=== PATIENT | female | born 1990 | race Caucasian/White ===

== ENCOUNTER → 2018-03-22 | Outpatient (CLI) | payer BC ==
[~2018-03-22] MED LIST: ASPI-515 PO; MAGN84TA6 PO; UBID60CA2 PO; VITA1TAB19 PO
== END | disposition home or self-care (01) ==
LOC: CARD 12:45
PROVIDERS: ATTEND Psychiatry & Neurology Neurology
DX: G40.909 Epilepsy, unspecified, not intractable, without status epilepticus (principal)
CPT/HCPCS: 95819

== ENCOUNTER → 2018-04-05 | Outpatient (CLI) | payer BC | END | disposition home or self-care (01) | LOC: RAD 14:15 | PROVIDERS: ATTEND Nurse Practitioner Family | DX: R13.14 Dysphagia, pharyngoesophageal phase (principal) | CPT/HCPCS: 74220 ==

== ENCOUNTER 2018-04-12 12:15 | Emergency (ER) | payer BC ==
[~2018-04-12] VITALS: Ht 170.2 cm; Wt 71.2 kg
[2018-04-12 12:58] LABS: MICROSCOPIC NOT IND
[2018-04-12 13:09] LABS: CULTURE INDICATED? NO
[2018-04-12 14:14] LABS: BASOPHILS # (AUTO) 0.03 x10^3/uL (0-0.1); BASOPHILS % (AUTO) 0 % (0-1); EOSINOPHILS # (AUTO) 0.12 x10^3/uL (0-0.4); EOSINOPHILS % (AUTO) 2 % (1-7); LYMPHOCYTES # (AUTO) 2.82 x10^3/uL (1-3.4); LYMPHOCYTES % (AUTO) 49 % (22-44); MD NO; MEAN CORPUSCULAR HEMOGLOBIN 31.3 pg (27.0-34.8); MEAN CORPUSCULAR VOLUME 92.1 fL (80-100); MEAN PLATELET VOLUME 9.1 fL (7.4-10.4); MONOCYTES # (AUTO) 0.48 x10^3/uL (0.2-0.8); MONOCYTES % (AUTO) 8 % (2-9); NEUTROPHILS # (AUTO) 2.37 x10^3/uL (1.8-6.8); NEUTROPHILS % (AUTO) 41 % (42-75); PLATELET COUNT 286 x10^3/uL (130-400); RED BLOOD COUNT 4.67 x10^6/uL (3.82-5.3); RED CELL DISTRIBUTION WIDTH 12.7 % (9.6-15.2)
[2018-04-12 14:28] LABS: ALBUMIN 4.1 g/dL (3.4-5.0); ANION GAP 5 mmol/L (5-15); CALCIUM 8.7 mg/dL (8.5-10.1); CHLORIDE 105 mmol/L (98-107)
[2018-04-12 14:34] LABS: ALANINE AMINOTRANSFERASE 25 U/L (12-78); ALKALINE PHOSPHATASE 53 U/L (45-117); BILIRUBIN,TOTAL 0.6 mg/dL (0.2-1.0); CREATININE 0.81 mg/dL (0.55-1.02); TOTAL PROTEIN 7.3 g/dL (6.4-8.2)
[2018-04-12 15:55] VITALS: BP 110/79
[2018-04-12] MEDS ORDERED: OMNIPAQUE 350 MG/ML, 100ML BOTTLE ONE (16:41)
== END 2018-04-12 17:18 | disposition home or self-care (01) ==
LOC: ED 14:50
DX: R10.32 Left lower quadrant pain (principal); R39.15 Urgency of urination; Z98.51 Tubal ligation status
CPT/HCPCS: 36415; 74018; 74177; 76830; 80053; 81003; 84703; 85025; 99285; Q9967

== ENCOUNTER 2018-04-27 09:46 | Emergency (ER) | payer BC ==
[~2018-04-27] VITALS: Ht 170.2 cm; Wt 72.2 kg
[2018-04-27 09:48] VITALS: BP 114/72
[2018-04-27 10:34] LABS: BASOPHILS # (AUTO) 0.03 x10^3/uL (0-0.1); BASOPHILS % (AUTO) 1 % (0-1); EOSINOPHILS # (AUTO) 0.12 x10^3/uL (0-0.4); EOSINOPHILS % (AUTO) 2 % (1-7); LYMPHOCYTES # (AUTO) 2.75 x10^3/uL (1-3.4); LYMPHOCYTES % (AUTO) 42 % (22-44); MD NO; MEAN CORPUSCULAR HEMOGLOBIN 31.5 pg (27.0-34.8); MEAN CORPUSCULAR VOLUME 92.6 fL (80-100); MEAN PLATELET VOLUME 8.8 fL (7.4-10.4); MONOCYTES # (AUTO) 0.53 x10^3/uL (0.2-0.8); MONOCYTES % (AUTO) 8 % (2-9); NEUTROPHILS # (AUTO) 3.09 x10^3/uL (1.8-6.8); NEUTROPHILS % (AUTO) 47 % (42-75); PLATELET COUNT 259 x10^3/uL (130-400); RED BLOOD COUNT 4.82 x10^6/uL (3.82-5.3); RED CELL DISTRIBUTION WIDTH 13.2 % (9.6-15.2)
[2018-04-27 10:44] LABS: ALBUMIN 4.2 g/dL (3.4-5.0); ANION GAP 5 mmol/L (5-15); CHLORIDE 108 mmol/L (98-107); CREATININE 0.83 mg/dL (0.55-1.02)
[2018-04-27] MEDS ORDERED: ONDANSETRON ODT 4 MG ONE (11:19)
[2018-04-27] MEDS ORDERED: ONDANSETRON ODT 4 MG PO ONE (11:30)
== END 2018-04-27 12:53 | disposition home or self-care (01) ==
LOC: ED 12:00
DX: K59.00 Constipation, unspecified (principal)
CPT/HCPCS: 36415; 74018; 80048; 82040; 84703; 85025; 99285; Q0162

== ENCOUNTER → 2018-05-01 | Outpatient (CLI) | payer BC ==
[~2018-05-01] MED LIST changes: +LIDOCAINE-MPF 1%, 2ML ONE
== END | disposition home or self-care (01) ==
LOC: RAD 11:56
PROVIDERS: ATTEND Obstetrics & Gynecology
DX: R19.04 Left lower quadrant abdominal swelling, mass and lump (principal); R59.9 Enlarged lymph nodes, unspecified
CPT/HCPCS: 76536; 76882; 76942; J3490

== ENCOUNTER → 2018-08-01 | Outpatient (CLI) | payer BC ==
[~2018-08-01] MED LIST changes: -LIDOCAINE-MPF 1%, 2ML ONE
== END | disposition home or self-care (01) ==
LOC: CFH 09:35
PROVIDERS: ATTEND Internal Medicine Cardiovascular Disease
DX: R94.31 Abnormal electrocardiogram [ECG] [EKG] (principal)
CPT/HCPCS: 93306

== ENCOUNTER 2018-08-21 08:08 | Day surgery (SDC) | payer BC ==
[~2018-08-21] VITALS: Ht 170.2 cm; Wt 68.8 kg
[~2018-08-21 08:08] MED LIST changes: +BUPIVACAINE/PF-EPI 0.25% 1:200K ONE; +EREN70AU SQ; +LINA290C PO; +MAGNESIUM PO; +RIZA10TA20 PO; +SPIR50TA PO; +URSO250T9 PO
[2018-08-21 09:00] VITALS: BP 114/81
[2018-08-21] MEDS ORDERED: LACTATED RINGERS 1,000 ML IV SCH (09:02)
[2018-08-21] MEDS ORDERED: MELA10TA PO (09:06)
[2018-08-21] MEDS ORDERED: ACETAMINOPHEN 500 MG TABLET ONE ×2 (09:20→09:23)
[2018-08-21] MEDS ORDERED: ONDANSETRON ODT 8 MG ONE (09:20)
[2018-08-21 09:27] LABS: HCG UR SG 1.025 (1.003-1.030)
[2018-08-21] MEDS ORDERED: LIDOCAINE-MPF 1%, 2ML INFIL ONE (09:30)
[2018-08-21] MEDS ORDERED: ACETAMINOPHEN 500 MG TABLET PO ONE (09:30)
[2018-08-21] MEDS ORDERED: ONDANSETRON ODT 8 MG PO ONE (09:30)
[2018-08-21] MEDS ORDERED: CEFAZOLIN 1,000 MG ONE ×2 (10:20)
[2018-08-21] MEDS ORDERED: MIDAZOLAM 1 MG/ML, 2ML ONE (10:20)
[2018-08-21] MEDS ORDERED: FENTANYL PF 100 MCG/2ML ONE (10:20)
[2018-08-21] MEDS ORDERED: PROPOFOL 10 MG/ML, 20ML ONE (10:20)
[2018-08-21] MEDS ORDERED: SCOPOLAMINE PATCH, 1.5MG PATCH.TD72 TD ONE (10:23)
[2018-08-21] MEDS ORDERED: FENTANYL PF 100 MCG/2ML IV PRN (11:00)
[2018-08-21] MEDS ORDERED: MORPHINE SULFATE 4 MG/ML, 1ML IVPush PRN (11:00)
[2018-08-21] MEDS ORDERED: PROCHLORPERAZINE 5 MG/ML, 2ML IV PRN (11:00)
[2018-08-21] MEDS ORDERED: MEPERIDINE/PF 25MG/0.5ML IVPush PRN (11:00)
[2018-08-21] MEDS ORDERED: DIPHENHYDRAMINE 50 MG/ML, 1ML IVPush PRN (11:00)
[2018-08-21] MEDS ORDERED: OXYcodone 5 MG/5 ML ORAL.SOL UDC PO PRN (11:00)
[2018-08-21] MEDS ORDERED: HYDROmorphone 1 MG/ML, 1ML IV PRN (11:00)
[2018-08-21] MEDS ORDERED: ALBUTEROL SULFATE 2.5 MG/3 ML NPPB PRN (11:00)
[2018-08-21] MEDS ORDERED: MIDAZOLAM 1 MG/ML, 2ML IV PRN (11:00)
[2018-08-21] MEDS ORDERED: LABETALOL 5MG/ML, 20ML IV PRN (11:00)
[2018-08-21] MEDS ORDERED: OXYcodone 5 MG/5 ML ORAL.SOL UDC ONE (11:29)
== END 2018-08-21 12:50 | disposition home or self-care (01) ==
LOC: OUT 08:08
PROVIDERS: ATTEND Surgery
DX: M79.89 Other specified soft tissue disorders (principal); N80.8 Other endometriosis; F32.9 Major depressive disorder, single episode, unspecified; G43.909 Migraine, unspecified, not intractable, without status migrainosus; Z88.8 Allergy status to other drugs, medicaments and biological substances; Z90.49 Acquired absence of other specified parts of digestive tract; Z98.890 Other specified postprocedural states; Z98.51 Tubal ligation status
CPT/HCPCS: 22903; 81025; 88305; J0690; J2250; J2704; J3010; J7120; Q0162

== ENCOUNTER 2020-04-25 10:27 | Day surgery (SDC) | payer BC ==
[~2020-04-25] VITALS: Ht 170.2 cm; Wt 73.8 kg
[~2020-04-25 10:27] MED LIST changes: -BUPIVACAINE/PF-EPI 0.25% 1:200K ONE; +MELA10TA PO
[2020-04-25] MEDS ORDERED: LACTATED RINGERS 1,000 ML IV SCH (10:45)
[2020-04-25 10:55] VITALS: BP 122/88
[2020-04-25] MEDS ORDERED: SPIR25TA5 PO (10:55)
[2020-04-25] MEDS ORDERED: FEXO180T72 PO (10:55)
[2020-04-25] MEDS ORDERED: URSO250T9 PO (10:55)
[2020-04-25] MEDS ORDERED: ELET40TA PO (10:55)
[2020-04-25] MEDS ORDERED: FREM225S SC (10:55)
[2020-04-25] MEDS ORDERED: AMIT10TA PO (10:55)
[2020-04-25] MEDS ORDERED: SCOPOLAMINE 1MG PATCH TD SCH (11:00)
[2020-04-25] MEDS ORDERED: GABAPENTIN 300 MG CAPSULE PO ONE (11:00)
[2020-04-25] MEDS ORDERED: CHLORHEXIDINE 15 ML UDC MM ONE (11:00)
[2020-04-25] MEDS ORDERED: ACETAMINOPHEN 500 MG TABLET PO ONE (11:00)
[2020-04-25 11:14] LABS: BASOPHILS # (AUTO) 0.06 x10^3/uL (0-0.1); BASOPHILS % (AUTO) 1 % (0-1); EOSINOPHILS # (AUTO) 0.12 x10^3/uL (0-0.4); EOSINOPHILS % (AUTO) 2 % (1-7); LYMPHOCYTES # (AUTO) 2.26 x10^3/uL (1-3.4); LYMPHOCYTES % (AUTO) 35 % (22-44); MD NO; MEAN CORPUSCULAR HEMOGLOBIN 31.6 pg (27.0-34.8); MEAN CORPUSCULAR HGB CONC 33.5 g/dL (32.4-35.8); MEAN CORPUSCULAR VOLUME 94.3 fL (80-100); MEAN PLATELET VOLUME 8.9 fL (7.4-10.4); MONOCYTES # (AUTO) 0.49 x10^3/uL (0.2-0.8); MONOCYTES % (AUTO) 8 % (2-9); NEUTROPHILS # (AUTO) 3.48 x10^3/uL (1.8-6.8); NEUTROPHILS % (AUTO) 54 % (42-75); PLATELET COUNT 278 x10^3/uL (130-400); RED BLOOD COUNT 4.73 x10^6/uL (3.82-5.3)
[2020-04-25 11:20] LABS: HCG UR SG 1.015 (1.003-1.030)
[2020-04-25 11:24] LABS: MICROSCOPIC INDICATED
[2020-04-25 11:27] LABS: ALANINE AMINOTRANSFERASE 31 U/L (12-78); ALBUMIN 4.4 g/dL (3.4-5.0); ANION GAP 4 mmol/L (5-15); CALCIUM 9.4 mg/dL (8.5-10.1); CHLORIDE 108 mmol/L (98-107); CREATININE 0.83 mg/dL (0.55-1.02)
[2020-04-25 11:30] LABS: ALKALINE PHOSPHATASE 58 U/L (45-117); BILIRUBIN,TOTAL 0.5 mg/dL (0.2-1.0); TOTAL PROTEIN 7.8 g/dL (6.4-8.2)
[2020-04-25] MEDS ORDERED: FENTANYL PF 100 MCG/2ML ONE ×2 (11:33→13:03)
[2020-04-25] MEDS ORDERED: MIDAZOLAM 1 MG/ML, 2ML ONE (11:33)
[2020-04-25] MEDS ORDERED: LIDOCAINE 1%-EPI 1:100K, 20ML ONE (11:40)
[2020-04-25] MEDS ORDERED: LIDOCAINE 1%-EPI 1:100K, 20ML IM ONE (12:05)
[2020-04-25] MEDS ORDERED: ONDANSETRON 2MG/ML, 2ML ONE (12:18)
[2020-04-25] MEDS ORDERED: ROCURONIUM 10MG/ML,5ML ONE (12:18)
[2020-04-25] MEDS ORDERED: SUGAMMADEX 200 MG/2 ML IVPush ONE (12:18)
[2020-04-25] MEDS ORDERED: NEOSTIGMINE 1 MG/ML, 10ML ONE (12:18)
[2020-04-25] MEDS ORDERED: SUCCINYLCHOLINE 20 MG/ML, 10ML ONE (12:18)
[2020-04-25] MEDS ORDERED: DEXAMETHASONE 4 MG/ML, 1ML ONE (12:18)
[2020-04-25] MEDS ORDERED: GLYCOPYRROLATE 0.2MG/1ML, 5ML ONE (12:18)
[2020-04-25] MEDS ORDERED: PROPOFOL 10 MG/ML, 20ML ONE (12:18)
[2020-04-25] MEDS ORDERED: CEFAZOLIN 1,000 MG ONE (12:18)
[2020-04-25] MEDS ORDERED: hydrALAzine 20 MG/ML, 1ML IV PRN (12:30)
[2020-04-25] MEDS ORDERED: DIAZEPAM 5 MG/ML, 2ML IVPush PRN (12:30)
[2020-04-25] MEDS ORDERED: LABETALOL 5MG/ML, 20ML IV PRN (12:30)
[2020-04-25] MEDS ORDERED: ALBUTEROL SULFATE 2.5 MG/3 ML NPPB PRN (12:30)
[2020-04-25] MEDS ORDERED: MEPERIDINE/PF 25MG/0.5ML IVPush PRN (12:30)
[2020-04-25] MEDS ORDERED: HYDROmorphone 2 MG/ML, 1ML IVPush PRN (12:30)
[2020-04-25] MEDS ORDERED: PROMETHAZINE 25 MG/ML, 1ML IV PRN (12:30)
[2020-04-25] MEDS ORDERED: OXYcodone 5 MG/5 ML ORAL.SOL UDC ONE (13:03)
[2020-04-25] MEDS: FENTANYL PF 100 MCG/2ML IV PRN ×2 (13:04→13:18)
[2020-04-25] MEDS: OXYcodone 5 MG/5 ML ORAL.SOL UDC PO PRN ×2 (13:20→13:37)
== END 2020-04-25 15:55 | disposition home or self-care (01) ==
LOC: OUT 10:27
PROVIDERS: ATTEND Obstetrics & Gynecology Gynecology
DX: R10.2 Pelvic and perineal pain (principal); Z11.59 Encounter for screening for other viral diseases; G89.29 Other chronic pain; G43.909 Migraine, unspecified, not intractable, without status migrainosus; Z79.899 Other long term (current) drug therapy; Z98.51 Tubal ligation status
CPT/HCPCS: 36415; 58661; 80053; 81001; 81025; 85025; 87086; 87635; 88302; J0690; J1100; J1170; J2250; J2405; J2704; J3010; J3490; J7120; J2710; J0330

== ENCOUNTER 2020-06-25 23:04 | Emergency (ER) | payer BC ==
[~2020-06-25] VITALS: Ht 170.2 cm; Wt 74.0 kg
[~2020-06-25 23:04] MED LIST changes: +AMIT10TA PO; +ELET40TA PO; +FEXO180T72 PO; +FREM225S SC; +SPIR25TA5 PO; -UBID60CA2 PO; +UBID60CA4 PO
--- NOTE | 2020-06-25 23:15 | NUR ---
EKG DONE IN TRIAGE
--- NOTE | 2020-06-25 23:37 | NUR ---
COOK CHILI: PT. TO ROOM FROM LOBBY AT THIS TIME.
--- NOTE | 2020-06-25 23:45 | NUR ---
RIGHT THIGH PAIN SINCE TUESDAY, CP AND SOB SINCE TUESDAY. DESCRIBED "DEEP ANNOYING HEAVINESS, THERE ALL THE TIME I WOULD SAY." MOTIONS TO RIGHT SIDE. HX OF SAME, ABNORMAL EKG AND HIGH BP. 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
[2020-06-26] MEDS ORDERED: SODIUM CHLORIDE FLUSH 10ML SYR IVF ONE
--- NOTE | 2020-06-26 00:14 | NUR ---
PT TO IMAGING.
[2020-06-26 00:34] LABS: BASOPHILS # (AUTO) 0.05 x10^3/uL (0-0.1); BASOPHILS % (AUTO) 1 % (0-1); EOSINOPHILS # (AUTO) 0.17 x10^3/uL (0-0.4); EOSINOPHILS % (AUTO) 2 % (1-7); LYMPHOCYTES # (AUTO) 2.59 x10^3/uL (1-3.4); LYMPHOCYTES % (AUTO) 28 % (22-44); MD NO; MEAN CORPUSCULAR HGB CONC 32.8 g/dL (32.4-35.8); MEAN CORPUSCULAR VOLUME 94.4 fL (80-100); MEAN PLATELET VOLUME 8.4 fL (7.4-10.4); MONOCYTES # (AUTO) 0.67 x10^3/uL (0.2-0.8); MONOCYTES % (AUTO) 7 % (2-9); NEUTROPHILS # (AUTO) 5.82 x10^3/uL (1.8-6.8); NEUTROPHILS % (AUTO) 63 % (42-75); PLATELET COUNT 301 x10^3/uL (130-400); RED BLOOD COUNT 4.96 x10^6/uL (3.82-5.3); RED CELL DISTRIBUTION WIDTH 12.4 % (9.6-15.2)
--- NOTE | 2020-06-26 00:35 | NUR ---
Moris noyola in [facility] - 06/26/20 at 0035 by WILL PT TO IMAGING.
[2020-06-26 00:43] LABS: ALANINE AMINOTRANSFERASE 23 U/L (12-78); ALBUMIN 4.3 g/dL (3.4-5.0); ANION GAP 6 mmol/L (5-15); CHLORIDE 106 mmol/L (98-107); CREATININE 1.06 mg/dL (0.55-1.02)
[2020-06-26 00:48] LABS: ALKALINE PHOSPHATASE 64 U/L (45-117); BILIRUBIN,TOTAL 0.4 mg/dL (0.2-1.0); TROPONIN I < 0.015 ng/mL (0.000-0.045)
--- NOTE | 2020-06-26 01:12 | NUR ---
PT REMAINS IN IMAGING.
[2020-06-26 01:37] VITALS: BP 134/98
--- NOTE | 2020-06-26 01:37 | NUR ---
PT SITTING IN BED, ON PHONE, NO SIGNS OF DISTRESS, CALL LIGHT IN REACH.
[2020-06-26] MEDS ORDERED: CEPHALEXIN 500 MG CAPSULE PO ONE (02:00)
[2020-06-26] MEDS ORDERED: CEPHALEXIN 500 MG CAPSULE ONE (02:03)
== END 2020-06-26 02:23 | disposition home or self-care (01) ==
LOC: ED 06-26 01:31
DX: I80.01 Phlebitis and thrombophlebitis of superficial vessels of right lower extremity (principal); N83.291 Other ovarian cyst, right side; L03.115 Cellulitis of right lower limb; R00.0 Tachycardia, unspecified; R07.89 Other chest pain; R06.02 Shortness of breath; I10 Essential (primary) hypertension
CPT/HCPCS: 36415; 71046; 76830; 80053; 83690; 84484; 84703; 85025; 85379; 93005; 99285

== ENCOUNTER → 2020-09-15 | Outpatient (CLI) | payer BC ==
[~2020-09-15] MED LIST changes: +URSO250T10 PO; -URSO250T9 PO; +[UNRECOGNIZED DRUG - OTHER] PO; +[UNRECOGNIZED DRUG - OTHER] PO
[2020-09-15 15:57] LABS: BASOPHILS % (AUTO) 0 % (0-1); EOSINOPHILS % (AUTO) 2 % (1-7); LYMPHOCYTES % (AUTO) 43 % (22-44); MEAN CORPUSCULAR HEMOGLOBIN 31.3 pg (27.0-34.8); MEAN CORPUSCULAR HGB CONC 33.9 g/dL (32.4-35.8); MEAN PLATELET VOLUME 8.6 fL (7.4-10.4); MONOCYTES % (AUTO) 10 % (2-9); NEUTROPHILS % (AUTO) 45 % (42-75); PLATELET COUNT 310 x10^3/uL (130-400); RED BLOOD COUNT 4.71 x10^6/uL (3.82-5.3)
[2020-09-15 16:00] LABS: MICROSCOPIC AUTO
[2020-09-15 16:03] LABS: ALANINE AMINOTRANSFERASE 23 U/L (12-78); ALBUMIN 4.1 g/dL (3.4-5.0); ANION GAP 4 mmol/L (5-15); CALCIUM 8.8 mg/dL (8.5-10.1); CHLORIDE 105 mmol/L (98-107); CREATININE 0.79 mg/dL (0.55-1.02)
[2020-09-15 16:07] LABS: ALKALINE PHOSPHATASE 64 U/L (45-117); BILIRUBIN,TOTAL 0.4 mg/dL (0.2-1.0); TOTAL PROTEIN 7.6 g/dL (6.4-8.2)
[2020-09-15 16:14] LABS: MD NO
== END | disposition home or self-care (01) ==
LOC: STAR 14:26
PROVIDERS: ATTEND Obstetrics & Gynecology Gynecology
DX: Z01.812 Encounter for preprocedural laboratory examination (principal); Z20.828 Contact with and (suspected) exposure to other viral communicable diseases; R10.2 Pelvic and perineal pain; N94.5 Secondary dysmenorrhea; N94.10 Unspecified dyspareunia
CPT/HCPCS: 36415; 80053; 81001; 84703; 85025; 87086; 87635

== ENCOUNTER 2020-09-19 08:54 | Day surgery (SDC) | payer BC ==
[~2020-09-19] VITALS: Ht 170.2 cm; Wt 75.5 kg
[2020-09-19 09:18] VITALS: BP 144/93
[2020-09-19] MEDS ORDERED: CHLORHEXIDINE 15 ML UDC MM ONE (09:30)
[2020-09-19] MEDS ORDERED: LACTATED RINGERS 1,000 ML IV SCH (09:30)
[2020-09-19 09:56] LABS: HCG UR SG 1.006 (1.003-1.030)
[2020-09-19] MEDS ORDERED: LIDOCAINE 1%, 20ML ONE (10:34)
[2020-09-19] MEDS ORDERED: EPINEPHRINE 1 MG/ML, 1ML ONE (10:34)
[2020-09-19] MEDS ORDERED: INDIGO CARMINE 0.8%, 5ML ONE (10:34)
[2020-09-19] MEDS ORDERED: MIDAZOLAM 1 MG/ML, 2ML ONE (10:40)
[2020-09-19] MEDS ORDERED: FENTANYL PF 250 MCG/5ML ONE (10:40)
[2020-09-19] MEDS ORDERED: ACETAMINOPHEN 500 MG TABLET ONE (10:40)
[2020-09-19] MEDS ORDERED: DEXAMETHASONE 4 MG/ML, 1ML ONE (10:41)
[2020-09-19] MEDS ORDERED: ROCURONIUM 10MG/ML,5ML ONE (10:41)
[2020-09-19] MEDS ORDERED: ONDANSETRON 2MG/ML, 2ML ONE (10:41)
[2020-09-19] MEDS ORDERED: NEOSTIGMINE 1 MG/ML, 10ML ONE (10:41)
[2020-09-19] MEDS ORDERED: SUCCINYLCHOLINE 20 MG/ML, 10ML ONE (10:41)
[2020-09-19] MEDS ORDERED: CEFAZOLIN 1,000 MG ONE (10:41)
[2020-09-19] MEDS ORDERED: PROPOFOL 10 MG/ML, 20ML ONE (10:41)
[2020-09-19] MEDS ORDERED: GLYCOPYRROLATE 0.2MG/1ML, 5ML ONE (10:41)
[2020-09-19] MEDS ORDERED: ACETAMINOPHEN 500 MG TABLET PO ONE (11:00)
[2020-09-19] MEDS ORDERED: PROPOFOL 50 ML ONE ×2 (11:52→12:08)
[2020-09-19] MEDS ORDERED: HYDROmorphone 1 MG/ML, 1ML INJ IVPush PRN (12:30)
[2020-09-19] MEDS ORDERED: METHOCARBAMOL 1,000 MG in DEXTROSE 5% 100 ML IV PRN (12:30)
[2020-09-19] MEDS ORDERED: LORazepam 2 MG/ML, 1ML IVPush PRN (12:30)
[2020-09-19] MEDS ORDERED: EPHEDRINE 50 MG/ML, 1ML IVPush PRN (12:30)
[2020-09-19] MEDS ORDERED: PROMETHAZINE 25 MG/ML, 1ML IVPush PRN (12:30)
[2020-09-19] MEDS ORDERED: ACETAMINOPHEN 325 MG TABLET PO PRN (12:30)
[2020-09-19] MEDS ORDERED: hydrALAzine 20 MG/ML, 1ML IV PRN (12:30)
[2020-09-19] MEDS ORDERED: LABETALOL 5MG/ML, 20ML IV PRN (12:30)
[2020-09-19] MEDS ORDERED: ONDANSETRON 2MG/ML, 2ML IVPush PRN (12:30)
[2020-09-19] MEDS ORDERED: MEPERIDINE/PF 25MG/0.5ML IVPush PRN (12:30)
[2020-09-19] MEDS ORDERED: FENTANYL PF 100 MCG/2ML ONE (13:13)
[2020-09-19] MEDS ORDERED: OXYcodone 5 MG/5 ML ORAL.SOL UDC ONE ×2 (13:13→13:27)
[2020-09-19] MEDS: OXYcodone 5 MG/5 ML ORAL.SOL UDC PO PRN ×2 (13:15→13:27)
[2020-09-19] MEDS: FENTANYL PF 100 MCG/2ML IV PRN ×3 (13:25→13:41)
== END 2020-09-19 17:40 | disposition home or self-care (01) ==
LOC: OUT 08:54
PROVIDERS: ATTEND Obstetrics & Gynecology Gynecology
DX: N94.6 Dysmenorrhea, unspecified (principal); N94.10 Unspecified dyspareunia; N72 Inflammatory disease of cervix uteri; G43.809 Other migraine, not intractable, without status migrainosus; K75.4 Autoimmune hepatitis; Z90.79 Acquired absence of other genital organ(s)
CPT/HCPCS: 36415; 58260; 81025; 85014; 85018; 88307; J0171; J0330; J0690; J1100; J2250; J2405; J2704; J2710; J3010; J7120